=== PATIENT | male | born 1985 | race Caucasian/White ===

== ENCOUNTER 2018-12-28 17:05 | Emergency (ER) | payer SELFPAY ==
--- NOTE | 2018-12-28 17:15 | NUR ---
NOT IN LOBBY AT THIS TIME
[2018-12-28 17:22] VITALS: BP 122/42
--- NOTE | 2018-12-28 18:03 | NUR ---
pt not found in room. per sitter monitoring other pt. reports this pt left the ed.
== END 2018-12-28 18:05 | disposition left against medical advice (07) ==
LOC: ED 17:59
DX: R33.9 Retention of urine, unspecified (principal)
CPT/HCPCS: 99281